=== PATIENT | male | born 1995 | race Caucasian/White ===

== ENCOUNTER 2017-03-18 18:24 | Emergency (ER) | payer OTHER, BC ==
[~2017-03-18] VITALS: Ht 180.3 cm; Wt 105.5 kg
[~2017-03-18 18:24] MED LIST: FLEXERIL10 MG PO; NAPROSYN500 MG PO
[2017-03-18] MEDS ORDERED: INDOCIN50 MG PO (19:04)
[2017-03-18 19:18] VITALS: BP 130/85
== END 2017-03-18 19:19 | disposition home or self-care (01) ==
LOC: RME 18:24 → EME 18:24 → RME 19:19
DX: M77.12 Lateral epicondylitis, left elbow (principal); Z96.622 Presence of left artificial elbow joint; Z72.0 Tobacco use
CPT/HCPCS: 73080; 99281; 99283